=== PATIENT | male | born 1945 | race Caucasian/White ===

== ENCOUNTER 2016-12-14 | Outpatient (CLI) | payer MEDICARE, OTHER | END 2016-12-14 11:41 | disposition critical access hospital (66) | CPT/HCPCS: A0425; A0427 ==

== ENCOUNTER 2016-12-14 12:01 | Emergency (ER) | payer MEDICARE, OTHER ==
[2016-12-14] MEDS ORDERED: KETOROLAC 60 MG/2 ML VIAL IVP STA (13:08)
[2016-12-14] MEDS ORDERED: ACETAMINOPHEN 1,000 MG/100 ML 100 ML IV STA (13:10)
[2016-12-14] MEDS ORDERED: KETOROLAC 30 MG/ML VIAL ONE (13:24)
[2016-12-14] MEDS ORDERED: ACETAMINOPHEN 1,000 MG/100 ML 100 ML IV ONE (13:24)
[2016-12-14] MEDS ORDERED: oxyCOD/ACETAMIN 5 MG/325 MG TABLET PO STA (15:40)
[2016-12-14] MEDS ORDERED: oxyCOD/ACETAMIN 5 MG/325 MG TABLET PO ONE (15:42)
== END 2016-12-14 16:11 | disposition home or self-care (01) ==
DX: M54.2 Cervicalgia (principal); S70.01XA Contusion of right hip, initial encounter; W18.30XA Fall on same level, unspecified, initial encounter; Y92.009 Unspecified place in unspecified non-institutional (private) residence as the place of occurrence of the external cause; M16.0 Bilateral primary osteoarthritis of hip
CPT/HCPCS: 70450; 72125; 72192; 96374; 96375; 99283; 99284; J0131

== ENCOUNTER 2016-12-21 | Outpatient (CLI) | payer MEDICARE, OTHER | END 2016-12-21 05:00 | disposition critical access hospital (66) | DX: R09.89 Other specified symptoms and signs involving the circulatory and respiratory systems (principal) | CPT/HCPCS: A0425; A0427 ==

== ENCOUNTER 2016-12-21 05:13 | Inpatient (IN) | payer MEDICARE, OTHER ==
[2016-12-21] MEDS ORDERED: IPRATROPIUM/ALBUTEROL 3 ML NEB INH STA (05:24)
[2016-12-21] MEDS ORDERED: IPRATROPIUM/ALBUTEROL 3 ML NEB INH ONE (05:31)
[2016-12-21] MEDS ORDERED: SODIUM CHLORIDE 0.9% 1,000 ML IV ONE ×2 (06:14→07:29)
[2016-12-21] MEDS ORDERED: MORPHINE 2 MG/ML SYRINGE IVP PRN (07:54)
[2016-12-21] MEDS ORDERED: IPRATROPIUM 0.2 MG/ML NEB INH PRN (07:54)
[2016-12-21] MEDS ORDERED: ONDANSETRON 4 MG/2 ML VIAL IVP PRN (07:54)
[2016-12-21] MEDS ORDERED: ALBUTEROL NEB 2.5 MG/3 ML INH PRN (07:54)
[2016-12-21] MEDS ORDERED: MIDAZOLAM 2 MG/2 ML VIAL ONE (08:14)
[2016-12-21] MEDS ORDERED: VECURONIUM 10 MG VIAL ONE (08:15)
[2016-12-21] MEDS ORDERED: MIDAZOLAM 2 MG/2 ML VIAL IVP STA (08:31)
[2016-12-21] MEDS ORDERED: VECURONIUM 10 MG VIAL IVP STA (08:32)
[2016-12-21] MEDS ORDERED: PIPERACILLIN/TAZOBACTAM 3.375 GM in SODIUM CHLORIDE 0.9% MINIBAG 100 ML IV SCH (09:00)
[2016-12-21] MEDS: PROPOFOL 1000 MG/100 ML 100 ML IV SCH ×2 (09:51→21:26)
[2016-12-21] MEDS: NS W/20 MEQ KCL 1,000 ML IV SCH ×2 (09:51→19:48)
[2016-12-21] MEDS: SACCHAROMYCES BOULARDII 250 MG CAPSULE PO SCH ×2 (09:52→18:18)
[2016-12-21] MEDS: PANTOPRAZOLE 40 MG VIAL IVP SCH ×2 (09:55→21:23)
[2016-12-21] MEDS: SODIUM CHLORIDE FLUSH 0.9% 10 ML SYRINGE IVP PRN (09:55)
[2016-12-21] MEDS: CHLORHEXIDINE GLUCONATE 15 ML UDC PO SCH ×2 (09:55→21:23)
[2016-12-21] MEDS: ENOXAPARIN 40 MG/0.4 ML SYRINGE SUBQ SCH (09:55)
[2016-12-21] MEDS ORDERED: VANCOMYCIN INJ 2 GM in SODIUM CHLORIDE 0.9% 500 ML IV SCH (10:00)
[2016-12-21] MEDS: NORepinephrine 8 MG in DEXTROSE 5% 250ML IV SCH ×2 (12:29→21:21)
[2016-12-21] MEDS: PIPERACILLIN/TAZOBACTAM 3.375 GM in SODIUM CHLORIDE 0.9% MINIBAG 100 ML IV SCH ×2 (12:47→20:35)
[2016-12-21] MEDS: SODIUM CHLORIDE FLUSH 0.9% 10 ML SYRINGE IVP SCH ×2 (15:12→21:23)
[2016-12-21] MEDS: CLINDAMYCIN 900 MG/50 ML 50 ML IV SCH (20:38)
[2016-12-22] MEDS ORDERED: INSULIN REGULAR HUMAN 100 UNIT/1 ML 10 ML MDV SUBQ SCH (02:00)
[2016-12-22] MEDS: CLINDAMYCIN 900 MG/50 ML 50 ML IV SCH ×4 (02:31→19:56)
[2016-12-22] MEDS: SODIUM CHLORIDE FLUSH 0.9% 10 ML SYRINGE IVP PRN ×4 (02:32→20:41)
[2016-12-22] MEDS: PIPERACILLIN/TAZOBACTAM 3.375 GM in SODIUM CHLORIDE 0.9% MINIBAG 100 ML IV SCH ×3 (04:44→19:56)
[2016-12-22] MEDS ORDERED: SODIUM CHLORIDE 0.45% 1,000 ML IV SCH (06:00)
[2016-12-22] MEDS: POTASSIUM CHLOR 20 MEQ/100 ML 100 ML IV SCH ×4 (06:11→19:18)
[2016-12-22] MEDS: SODIUM CHLORIDE FLUSH 0.9% 10 ML SYRINGE IVP SCH ×3 (06:16→20:40)
[2016-12-22] MEDS: INSULIN REGULAR HUMAN 100 UNIT/1 ML 10 ML MDV SUBQ SCH ×3 (06:31→18:26)
[2016-12-22] MEDS: NS W/20 MEQ KCL 1,000 ML IV SCH (06:35)
[2016-12-22] MEDS ORDERED: PANTOPRAZOLE 40 MG VIAL IVP SCH (07:00)
[2016-12-22] MEDS: NORepinephrine 8 MG in DEXTROSE 5% 250ML IV SCH (08:22)
[2016-12-22] MEDS: DEXTROSE 5% 1,000 ML IV SCH ×3 (08:41→20:13)
[2016-12-22] MEDS: SACCHAROMYCES BOULARDII 250 MG CAPSULE PO SCH ×2 (08:58→17:01)
[2016-12-22] MEDS: CHLORHEXIDINE GLUCONATE 15 ML UDC PO SCH ×2 (08:59→20:40)
[2016-12-22] MEDS: VANCOMYCIN INJ 1 GM in SODIUM CHLORIDE 0.9% 250 ML IV SCH (09:55)
[2016-12-22] MEDS ORDERED: VANCOMYCIN INJ 1 GM, VANCOMYCIN INJ 500 MG in SODIUM CHLORIDE 0.9% 500 ML IV SCH (10:00)
[2016-12-22] MEDS: PANTOPRAZOLE 40 MG VIAL IVP SCH ×2 (10:10→20:40)
[2016-12-22] MEDS: ENOXAPARIN 40 MG/0.4 ML SYRINGE SUBQ SCH (10:10)
[2016-12-22] MEDS: PROPOFOL 1000 MG/100 ML 100 ML IV SCH (16:56)
[2016-12-23] MEDS: INSULIN REGULAR HUMAN 100 UNIT/1 ML 10 ML MDV SUBQ SCH ×5 (00:20→23:45)
[2016-12-23] MEDS ORDERED: CALCIUM GLUCONATE 1,000 MG in SODIUM CHLORIDE 0.9% 50 ML IV ONE (01:45)
[2016-12-23] MEDS: DEXTROSE 5% 1,000 ML IV SCH ×2 (02:06→03:52)
[2016-12-23] MEDS: POTASSIUM CHLOR 20 MEQ/100 ML 100 ML IV SCH ×2 (02:17→03:40)
[2016-12-23] MEDS: CLINDAMYCIN 900 MG/50 ML 50 ML IV SCH ×2 (03:15→08:42)
[2016-12-23] MEDS: PIPERACILLIN/TAZOBACTAM 3.375 GM in SODIUM CHLORIDE 0.9% MINIBAG 100 ML IV SCH (03:39)
[2016-12-23] MEDS: SODIUM CHLORIDE FLUSH 0.9% 10 ML SYRINGE IVP PRN ×2 (03:43→08:43)
[2016-12-23] MEDS: SODIUM CHLORIDE FLUSH 0.9% 10 ML SYRINGE IVP SCH ×3 (06:14→20:59)
[2016-12-23] MEDS: ENOXAPARIN 40 MG/0.4 ML SYRINGE SUBQ SCH (08:42)
[2016-12-23] MEDS: PANTOPRAZOLE 40 MG VIAL IVP SCH ×2 (08:42→20:58)
[2016-12-23] MEDS: SACCHAROMYCES BOULARDII 250 MG CAPSULE PO SCH ×2 (08:42→16:40)
[2016-12-23] MEDS: CHLORHEXIDINE GLUCONATE 15 ML UDC PO SCH ×2 (08:42→20:58)
[2016-12-23] MEDS ORDERED: SODIUM CHLORIDE 0.9% 1,000 ML IV ONE (10:40)
[2016-12-23] MEDS: VANCOMYCIN INJ 1 GM in SODIUM CHLORIDE 0.9% 250 ML IV SCH (10:48)
[2016-12-23] MEDS: SODIUM CHLORIDE 0.45% 1,000 ML IV SCH ×2 (12:31→12:45)
[2016-12-23] MEDS ORDERED: SODIUM CHLORIDE INHALATION 3 ML NEB ONE (14:24)
[2016-12-23] MEDS: NORepinephrine 8 MG in DEXTROSE 5% 250ML IV SCH (16:39)
[2016-12-23] MEDS ORDERED: TPN (CLINIMIX E 5/15) 2,000 ML with MULTIVITAMIN 10 ML, TRACE ELEMENTS V CONC 1 ML IV SCH ×3 (19:00)
[2016-12-23] MEDS: FAT EMULSION 20% 250 ML IV SCH (20:01)
[2016-12-24] MEDS: SODIUM CHLORIDE 0.45% 1,000 ML IV SCH ×2 (02:38→12:24)
[2016-12-24] MEDS ORDERED: POTASSIUM PHOSPHATE 15 MMOL in SODIUM CHLORIDE 0.9% 250 ML IV ONE (05:57)
[2016-12-24] MEDS: INSULIN REGULAR HUMAN 100 UNIT/1 ML 10 ML MDV SUBQ SCH ×3 (06:08→17:45)
[2016-12-24] MEDS: SODIUM CHLORIDE FLUSH 0.9% 10 ML SYRINGE IVP SCH ×2 (06:09→14:22)
[2016-12-24] MEDS: POTASSIUM CHLOR 20 MEQ/100 ML 100 ML IV SCH ×2 (06:54→10:35)
[2016-12-24] MEDS ORDERED: LORazepam 2 MG/ML SYRINGE IVP PRN (07:00)
[2016-12-24] MEDS ORDERED: CHLORHEXIDINE GLUCONATE 15 ML UDC PO SCH ×2 (09:00)
[2016-12-24] MEDS: NORepinephrine 8 MG in DEXTROSE 5% 250ML IV SCH ×2 (09:20→12:22)
[2016-12-24] MEDS: PROPOFOL 1000 MG/100 ML 100 ML IV SCH ×5 (09:21→18:46)
[2016-12-24] MEDS: SACCHAROMYCES BOULARDII 250 MG CAPSULE PO SCH ×2 (09:22→16:49)
[2016-12-24] MEDS: VANCOMYCIN INJ 1 GM in SODIUM CHLORIDE 0.9% 250 ML IV SCH (10:24)
[2016-12-24] MEDS: FAT EMULSION 20% 250 ML IV SCH (10:24)
[2016-12-24] MEDS: ENOXAPARIN 40 MG/0.4 ML SYRINGE SUBQ SCH (10:25)
[2016-12-24] MEDS: CHLORHEXIDINE GLUCONATE 15 ML UDC PO SCH (10:25)
[2016-12-24] MEDS ORDERED: PIPERACILLIN/TAZOBACTAM 4.5 GM in SODIUM CHLORIDE 0.9% MINIBAG 100 ML IV ONE (12:00)
[2016-12-24] MEDS ORDERED: PIPERACILLIN/TAZOBACTAM 4.5 GM in SODIUM CHLORIDE 0.9% MINIBAG 100 ML IV SCH (14:00)
[2016-12-24] MEDS ORDERED: VECURONIUM 100 MG in SODIUM CHLORIDE 0.9% 100ML 100 ML IVP SCH (14:00)
[2016-12-24] MEDS ORDERED: BISACODYL 10 MG SUPP PR ONE (14:30)
[2016-12-24] MEDS ORDERED: FUROSEMIDE 20 MG/2 ML VIAL IVP ONE (16:27)
[2016-12-24] MEDS ORDERED: ADENOSINE 6 MG/2 ML VIAL IVP ONE ×2 (16:35→17:30)
[2016-12-24] MEDS ORDERED: MIN OIL/DIMETHICON/COCONUT OIL 92 GM TUBE TOP ONE (16:53)
[2016-12-24] MEDS ORDERED: FUROSEMIDE 40 MG/4 ML VIAL IVP ONE (17:00)
[2016-12-24] MEDS ORDERED: VASOPRESSIN 20 UNIT in DEXTROSE 5% 99 ML IVP ONE (18:17)
[2016-12-24] MEDS ORDERED: PHENYLEPHRINE 20 MG in SODIUM CHLORIDE 0.9% 248 ML IV ONE (18:17)
[2016-12-25] MEDS ORDERED: PANTOPRAZOLE 40 MG VIAL IVP SCH (07:00)
== END 2016-12-24 19:00 | disposition short-term general hospital (02) | DRG 871 ==
PROC: 5A1945Z Respiratory Ventilation, 24-96 Consecutive Hours (ICD-10-PCS; principal; 2016-12-21)
PROC: 0BH17EZ Insertion of Endotracheal Airway into Trachea, Via Natural or Artificial Opening (ICD-10-PCS; principal; 2016-12-21)
PROC: 02HV33Z Insertion of Infusion Device into Superior Vena Cava, Percutaneous Approach (ICD-10-PCS; principal; 2016-12-21)
PROC: 3E0436Z Introduction of Nutritional Substance into Central Vein, Percutaneous Approach (ICD-10-PCS; 2016-12-23)
PROC: 0BH17EZ Insertion of Endotracheal Airway into Trachea, Via Natural or Artificial Opening (ICD-10-PCS; 2016-12-24)
PROC: 5A1935Z Respiratory Ventilation, Less than 24 Consecutive Hours (ICD-10-PCS; 2016-12-24)
PROC: 03HY32Z Insertion of Monitoring Device into Upper Artery, Percutaneous Approach (ICD-10-PCS; 2016-12-24)
DX: A41.9 Sepsis, unspecified organism (principal); T17.908A Unspecified foreign body in respiratory tract, part unspecified causing other injury, initial encounter; R65.21 Severe sepsis with septic shock; J96.02 Acute respiratory failure with hypercapnia; J96.01 Acute respiratory failure with hypoxia; I95.9 Hypotension, unspecified; I51.9 Heart disease, unspecified; J15.5 Pneumonia due to Escherichia coli; J15.6 Pneumonia due to other Gram-negative bacteria; J69.0 Pneumonitis due to inhalation of food and vomit; N39.0 Urinary tract infection, site not specified; K56.60 Unspecified intestinal obstruction; C7A.022 Malignant carcinoid tumor of the ascending colon; E87.0 Hyperosmolality and hypernatremia; N17.9 Acute kidney failure, unspecified; E87.4 Mixed disorder of acid-base balance; T17.918A Gastric contents in respiratory tract, part unspecified causing other injury, initial encounter; B95.61 Methicillin susceptible Staphylococcus aureus infection as the cause of diseases classified elsewhere; E86.0 Dehydration; I12.9 Hypertensive chronic kidney disease with stage 1 through stage 4 chronic kidney disease, or unspecified chronic kidney disease; N18.9 Chronic kidney disease, unspecified; G20 Parkinson's disease; F02.80 Dementia in other diseases classified elsewhere, unspecified severity, without behavioral disturbance, psychotic disturbance, mood disturbance, and anxiety; E66.9 Obesity, unspecified; C7B.00 Secondary carcinoid tumors, unspecified site; Z16.29 Resistance to other single specified antibiotic; Z16.23 Resistance to quinolones and fluoroquinolones; Z78.1 Physical restraint status; Z79.82 Long term (current) use of aspirin; Z68.29 Body mass index [BMI] 29.0-29.9, adult; Z90.49 Acquired absence of other specified parts of digestive tract